=== PATIENT | male | born 1955 | race Caucasian/White ===

== ENCOUNTER 2020-12-27 14:59 | Outpatient (CLI) | payer MEDICARE, MEDICAID, SELFPAY ==
--- NOTE | 2020-12-27 11:01 | ECG_ITS ---
Measurements Intervals [place] Rate: 56 P: 24 ME: 186 QRS: 5 QRSD: 94 T: 20 QT: 380 QTc: 369 Interpretive Statements SINUS BRADYCARDIA INCOMPLETE RIGHT BUNDLE BRANCH BLOCK PEAKED T WAVES- CONSIDER HYPERKALEMIA OR ISCHEMIA BASELINE ARTIFACT- I, II, III, AVR, AVL, AVF ABNORMAL ECG Electronically Signed On 12-27-2020 11:24:21 CDT by Daniel Mayer D.O.
[2020-12-27 11:26] LABS: Basophils Absolute Auto 0.1 K/mm3 (0.0-0.1); Basophils Percent Auto 1.2 % (0.2-1.2); Eosinophils Absolute Auto 0.1 K/mm3 (0-0.3); Eosinophils Percent Auto 1.4 % (0-4.4); Hematocrit 45.4 % (42.0-52.0); Hemoglobin 14.7 g/dL (14.0-18.0); Immature Granulocyte Absolute 0.01 K/mm3 (0.00-0.031); Immature Granulocyte Percent A 0.2 % (0-0.5); Lymphocytes Absolute Auto 1.36 K/mm3 (0.9-3.2); Mean Corpuscular HGB Conc 32.4 g/dl (32-36); Mean Corpuscular Volume 95.8 fl (80-100); Monocytes Absolute Auto 0.5 K/mm3 (0.1-0.6); Monocytes Percent Auto 8.8 % (2.6-8.5); Neutrophils Absolute Auto 3.9 K/mm3 (1.3-6.7); Neutrophils Percent Auto 65.4 % (45.5-73.1); Platelet Count Result 243 k/mm3 (150-375); Red Blood Count 4.74 M/mm3 (4.6-6.20); Red Cell Distribution Width 12.6 % (11.5-14.5); White Blood Count 5.9 K/mm3 (4.5-10.0)
[2020-12-27 11:29] LABS: INR 0.9
[2020-12-27 11:32] LABS: Partial Thromboplastin Time 26.3 SECONDS (22.3-36.8)
[2020-12-27 11:36] LABS: Alanine Aminotransferase 31 U/L (4-50); Albumin Level 4.5 g/dL (3.5-5.1); Alkaline Phosphatase 62 U/L (38-126); Anion Gap 6 mmol/L (8-16); Aspartate Amino Transferase 32 U/L (17-59); Bilirubin,Total 0.9 mg/dL (0.2-1.3); Blood Urea Nitrogen 13 mg/dL (9-20); Calcium 9.2 mg/dL (8.4-10.2); Carbon Dioxide 30 mmol/L (22-30); Chloride 102 mmol/L (98-107); Estimated Glomerular Filt Rate > 60; Glucose 96 mg/dL (75-110); Potassium 4.9 mmol/L (3.4-5.0); Sodium 138 mmol/L (137-145)
== END 2020-12-27 15:00 | disposition home or self-care (01) ==
LOC: ANHSURGERY 01-16 15:01
PROVIDERS: Visit Provider Urology
DX: Z01.818 Encounter for other preprocedural examination (principal); C61 Malignant neoplasm of prostate; E78.00 Pure hypercholesterolemia, unspecified
CPT/HCPCS: 36415; 80053; 85025; 85610; 85730; 86850; 86900; 86901; 87086; 93005

== ENCOUNTER 2021-01-03 01:13 | Day surgery (SDC) | payer MEDICARE, MEDICAID, SELFPAY ==
[2020-12-27 10:18] VITALS: BP 142/92; PULSE 61; RESP 18; TEMP 37.4; O2SAT 100; BMI 24.0
--- NOTE | 2021-01-02 09:22 | WPDANESEPPF ---
Anes - Initial Pre Proc Eval Procedure: Operation Date: 01/03/21 07:30 Proposed Procedures p Robotic Assisted Nerve Sparing Prostatectomy, with Possible Bilateral Pelvic Lymph Nodes Dissection - Wil Nicolas MD Date/Time: 01/02/21 09:22 Surgeon: Wil Nicolas MD Pre Op Diagnosis: Prostate cancer Patient Data Age: 65 Gender: M Height: 1.8 m Weight: 78.3 kg Last Vital Signs Temp 37.4 C 12/27/20 10:18 Pulse 61 12/27/20 10:18 Resp 18 12/27/20 10:18 BP 142/92 H 12/27/20 10:18 Pulse Ox 100 12/27/20 10:18 Allergies Allergy/AdvReac Type Severity Reaction Status Date / Time No Known Allergies Allergy Verified 01/03/21 06:54 Home Medications Medication Instructions Recorded Confirmed Type fluticasone propionate 1 spray INTRANASAL DAILY PRN 12/27/20 12/27/20 History loratadine [Claritin] 10 mg PO DAILY PRN 12/27/20 12/27/20 History simvastatin 10 mg PO HS 12/27/20 12/27/20 History vitamin B complex [B 1 tablet PO DAILY 12/27/20 12/27/20 History Complex-Vitamin B12] Patient hx anesthesia problems: none Family hx anesthesia problems: none [facility] Past Medical History Medical History (Updated 01/02/21 @ 09:22 by Herson Ayala DO) History of basal cell cancer Prostate cancer Surgical History Surgical History (Updated 01/02/21 @ 09:22 by Herson Ayala DO) History of tonsillectomy Social History Social History Smoking status: Never smoker Tobacco type: cigarettes Alcohol intake: never Substance use type: marijuana Living arrangements: with family Additional living arrangements comments: [facility] Spiritual care concerns: No Anes - Eval Final PreProcedure Day of Procedure 01/02/21 09:22 Patient weight: normal Heart: regular rate and rhythm Lungs: clear to auscultation and normal air movement Airway: Mallampati scale class III Neurological: alert and oriented Last oral intake: >/= 8 hours ASA classification: III Emergent: no Anesthetic plan: proceed Anesthesia type and monitoring: general ETT and standard monitoring Informed Consent: The patient's anesthetic plan and its attendant risks and benefits were discussed with the patient/family/POA. Questions were solicited and answers provided to the satisfaction of the patient/family/POA.
[2021-01-03] VITALS (20 sets, daily range): BP systolic 102–154; BP diastolic 68–89; PULSE 58–96; RESP 12–20; TEMP 36.2–37.5; O2SAT 97–100
[2021-01-03] MEDS: LACTATED RINGERS 1,000 ML 30 ML IV CONT ×2 (06:39→11:35)
--- NOTE | 2021-01-03 07:14 | WPDHPUPDATE1 ---
History and Physical Update Update Date/Time: 01/03/21 07:14 History and Physical has been reviewed, including an updated exam of the patient. There are NO changes in the patient's condition. Risks, benefits, and alternatives have been discussed and questions answered. Patient agrees to proceed with procedure.
[2021-01-03] MEDS: ceFAZolin 2 GM/D5W 50 ML 2 GM/50 ML BAG IVPB (07:22)
--- NOTE | 2021-01-03 11:05 | P.OP_ITS ---
Procedure Note - Detailed Date of Procedure 01/03/21 Pre-op Diagnosis Prostate cancer Post-op Diagnosis same Procedure Performed Robotic assisted nerve-sparing prostatectomy with bilateral pelvic lymph node dissection Surgeon Wil Nicolas MD Anesthesia general Description of Procedure patient is taken to the operative suite and correctly identified. Once anesthesia was obtained was placed in low lying dorsal lithotomy position and prepped and draped usual sterile fashion. All pressure points were padded. Eighteen English Garcia was placed with 20 cc in the balloon. Supraumbilical incision was then made and a Veress needle was inserted and insufflated to 15 mmHg pressure. Camera port trocar was then placed under direct vision. Working ports were placed in the appropriate locations. Patient was placed in steep Trendelenburg position and the robot was docked. We then did a posterior ap proach. Seminal vesicles were dissected out in their entirety. Vas were transected. Plane between the prostate and rectum were developed. Bladder was taken down standard fashion. Space of Retzius was developed. Puboprostatics were transected. Dorsal venous complex was then ligated using an 0 Vicryl in secured to the pubic bone. Bladder neck was then incised. Bladder neck sparing procedure was performed. Posterior plane was then developed and the prior dissected seminal vesicles were visualized. Pedicles were clipped. Bilateral nerve sparing was then performed. Dorsal venous complex was transected. The urethra was also transected. Specimen was placed in Endo-Catch bag. Bilateral pelvic lymph node dissections were then performed with the boundaries being the external iliac vein, obturator nerve, Gage's ligament, and bifurcation of the vessels. Proximal and distal ends were clipped. Surgicel was placed in the obturator fossa as as well as overlying the nerve bundles. A Chauncey stitch was then placed using 0 Vicryl. Bladder neck was anastomosed to the urethra stent with good mucosa to mucosa approximation. V lock suture was used. Eighteen English Garcia was placed with 10 cc in the balloon. The bladder was filled with 200 cc of normal saline. It irrigated well. There was no evidence of extravasation at this time. The robot was undocked and a ANA M drain was then placed through the 3rd port site. This was secured. Midline incision was closed using 0 Vicryl in a running fashion. Subcuticular stitches were then placed. Incisions were anesthetized using 1% lidocaine. Patient tolerated procedure well without any complications and was taken recovery room stable condition. All lap count needle count sponge counts were correct at this point. Blood loss was approximately 100 cc Estimated Blood Loss 100 Drains Yes Packing No Pathology yes Complications No immediate complications Condition stable Disposition PACU
--- NOTE | 2021-01-03 15:03 | ADMGEN ---
This patient, Herson Andino, was admitted to 2 Medical Room 253-01. Patient/family oriented to hospital policies and general routines including ID bracelet, bed and alarms, visiting hours, pain management, procedures, bathroom and other care routines, personal items, smoking policy, room service/diet, and visiting hours. Information on how to activate the Rapid Response Team has been discussed. Patient/Family are encouraged to report perceived risks to care and to ask questions if they do not understand what they are told or what they should do. Report received from OLU Rodas
[2021-01-03] MEDS: LACTATED RINGERS 1,000 ML 125 ML IV CONT ×2 (15:33→23:34)
[2021-01-03] MEDS: HYDROcodone/acetaminophen (*CRX) 5-325 MG TABLET 1 TAB PO (16:03)
[2021-01-03] MEDS: HYDROcodone/acetaminophen (*CRX) 5-325 MG TABLET 2 TAB PO (20:46)
[2021-01-03] MEDS: SIMVASTATIN 10 MG TABLET PO (20:47)
[2021-01-04 00:33] VITALS: BP 121/70; PULSE 83; RESP 16; TEMP 36.7; O2SAT 98
[2021-01-04 04:33] VITALS: BP 112/71; PULSE 70; RESP 16; TEMP 36.5; O2SAT 97
[2021-01-04] MEDS: HYDROcodone/acetaminophen (*CRX) 5-325 MG TABLET 1 TAB PO (04:53)
[2021-01-04 05:46] LABS: Hematocrit 36.7 % (42.0-52.0); Hemoglobin 12.2 g/dL (14.0-18.0)
[2021-01-04 05:56] LABS: Anion Gap 3 mmol/L (8-16); Blood Urea Nitrogen 12 mg/dL (9-20); Calcium 8.3 mg/dL (8.4-10.2); Carbon Dioxide 29 mmol/L (22-30); Chloride 103 mmol/L (98-107); Estimated CRCL calculation 57 ml/min; Estimated Glomerular Filt Rate 60; Glucose 113 mg/dL (65-110); Potassium 4.2 mmol/L (3.4-5.0); Sodium 135 mmol/L (137-145)
[2021-01-04] MEDS: LACTATED RINGERS 1,000 ML 125 ML IV CONT (08:20)
[2021-01-04] MEDS: levoFLOXacin 500 MG TABLET PO (08:21)
--- NOTE | 2021-01-04 09:42 | WPDUROPN2 ---
Progress Note: A&P Assessment and Plan (1) Prostate cancer: Code(s): C61 - Malignant neoplasm of prostate Status: Inactive Assessment and Plan: Will plan to discharge this afternoon if the patient tolerates activity. If the ANA M drain output decreases will plan to remove the drain, otherwise it will stay in until Saturday. Garcia catheter will remain in until next week after cystogram. Will check on patient around noon, then decide on discharge. Subjective Subjective Date/Time Seen: 01/04/21 09:42 POD #1 Robotic Assisted Nerve Sparing Prostatectomy with bilateral pelvic lymph node dissection. Patient is doing well this morning, he notes improvement of his pain, he is tolerating his diet, but has not been up to the chair or ambulating just yet. His ANA M drain has had a moderate amount of bloody drainage. Urine is clear and draining to gravity. Review of Systems Cardiovascular: Cardiovascular: Denies chest pain Respiratory: Respiratory: Reports no additional respiratory complaints Gastrointestinal: Gastrointestinal: Reports abdominal pain, Denies nausea and Denies vomiting Genitourinary: Genitourinary: Denies hematuria, Denies dysuria, Denies flank pain, Denies urinary frequency, Denies urinary hesitancy and Denies urinary urgency Exam Resp: Effort & Inspection: normal respiratory effort Cardio: Rate: regular rate GI: Inspection: incision (all are well approximated, no drainage or edema) GI Palp: Yes Soft to palpation and Yes Tenderness to palpation present (GI) (at inscions sites only) Rectal Exam: other (ANA M drain draining to gravity, bloody drainage noted in the bulb) Urinary Catheter: Urinary Catheter: patent and draining and urine clear Extrem: General: no edema Objective Data Vital Signs Vital Signs: Vital Signs - 24 hr 01/03/21 11:26 01/03/21 11:30 01/03/21 11:45 Temperature 97.1 F L Pulse Rate 82 67 61 Respiratory Rate 18 12 17 Blood Pressure 141/87 H 144/83 H 102/89 Pulse Oximetry 100 100 100 01/03/21 12:00 01/03/21 12:15 01/03/21 12:30 Temperature Pulse Rate 58 L 60 64 Respiratory Rate 16 13 18 Blood Pressure 144/78 H 126/76 143/85 H Pulse Oximetry 100 100 99 01/03/21 12:45 01/03/21 13:00 01/03/21 13:15 Temperature Pulse Rate 68 69 68 Respiratory Rate 12 14 15 Blood Pressure 144/85 H 140/82 131/85 Pulse Oximetry 99 100 98 01/03/21 13:30 01/03/21 14:00 01/03/21 14:30 Temperature 98.2 F Pulse Rate 69 71 77 Respiratory Rate 16 16 19 Blood Pressure 131/87 125/84 130/83 Pulse Oximetry 97 98 98 01/03/21 14:45 01/03/21 15:00 01/03/21 15:15 Temperature 98.1 F 98.3 F Pulse Rate 83 84 83 Respiratory Rate 20 18 18 Blood Pressure 123/82 128/78 130/86 Pulse Oximetry 99 98 98 01/03/21 15:45 01/03/21 16:45 01/03/21 20:00 Temperature 98.2 F 99.5 F Pulse Rate 73 96 88 Respiratory Rate 18 18 18 Blood Pressure 138/81 112/68 Pulse Oximetry 97 100 98 01/03/21 20:33 01/04/21 00:33 01/04/21 04:33 Temperature 99.1 F 98.1 F 97.7 F Pulse Rate 88 83 70 Respiratory Rate 18 16 16 Blood Pressure 120/74 121/70 112/71 Pulse Oximetry 98 98 97 Intake/Output Intake/Output: Intake & Output 01/01/21 01/02/21 01/03/21 01/04/21 23:59 23:59 23:59 23:59 Intake Total 2410 1200 Output Total 820 2460 Balance 1590 -1260 Meds/Results Medications: Active Medications Generic Name Dose Route Start Last Admin Trade Name Freq PRN Reason Stop Dose Admin Hydrocodone Bitart/Acetaminophen 1 tab 01/03/21 14:48 01/04/21 04:53 Hydrocodone/Acetaminophen (*Crx) 5-325 Mg Tablet PO 1 tab Q6H PRN Administration Pain Rated 1-3 Hydrocodone Bitart/Acetaminophen 2 tab 01/03/21 14:48 01/03/21 20:46 Hydrocodone/Acetaminophen (*Crx) 5-325 Mg Tablet PO 2 tab Q6H PRN Administration Pain Rated 4-6 Hyoscyamine 0.125 mg 01/03/21 14:48 Hyoscyamine Sulfate 0.125 Mg Tablet SUBLINGUAL Q4H PRN Bladder Spasm Lactated Ringer's 1,0
== END 2021-01-04 14:26 | disposition home or self-care (01) ==
LOC: ANHSURGERY 06:09 → ANH2MED 14:51
PROVIDERS: Visit Provider Urology
PROC: 0VT04ZZ Resection of Prostate, Percutaneous Endoscopic Approach (ICD-10-PCS; CPT 55867; principal; 2021-01-03 07:30)
DX: C61 Malignant neoplasm of prostate (principal)
CPT/HCPCS: 55866; 38571; S2900; 36415; 80048; 80053; 85014; 85018; 85025; 85610; 85730; 86850; 86900; 86901; 87086; 88307; 88342; 93005; A9270; J0690; J1100; J2405; J2704; J2710; J3010; J7030; J7120

== ENCOUNTER 2021-01-11 09:34 | Outpatient (CLI) | payer MEDICARE, MEDICAID, SELFPAY ==
--- NOTE | ~2021-01-11 | XR_ITS ---
EXAMINATION: CYSTOGRAM DATE: 01/11/2021 10:05 INDICATION: Prostate cancer follow-up TECHNIQUE: Initial project management radiograph of the pelvis was performed. There was retrograde administration of Omnipaque 350 mixed with saline contrast into patient's existing aguirre catheter. Fluoroscopic vicki ges of the pelvis were obtained. A post-void image was also performed. 10 fluoroscopic images. 0.8 mi nutes of fluoroscopy. FINDINGS: There is extravasation of contrast, consistent with leak originating at the bladder neck on the right. There is mild trabeculation of the bladder wall. No intraluminal filling defects identifi ed, although examination limited. IMPRESSION: 1. Bladder leak with extravasation of contrast at the bladder neck on the right. Reviewed, dictated and finalized at location A. IMPRESSION: 1. Bladder leak with extravasation of contrast at the bladder neck on the rig t.
== END 2021-01-11 09:35 | disposition home or self-care (01) ==
LOC: ANHIMG 09:38
PROVIDERS: Visit Provider Urology
DX: C61 Malignant neoplasm of prostate (principal); R32 Unspecified urinary incontinence
CPT/HCPCS: 51600; 74430; Q9967

== ENCOUNTER 2021-01-18 08:52 | Outpatient (CLI) | payer MEDICARE, MEDICAID, SELFPAY ==
--- NOTE | ~2021-01-18 | XR_ITS ---
EXAMINATION: XR cystogram DATE: 01/18/2021 09:47 INDICATION: Malignant neoplasm of the prostate status post prostatectomy TECHNIQUE: Water-soluble contrast was gravity-infused through the patient's Garcia catheter. Multiple fluoroscopic images were obtained. Fluoroscopy exposure time was 0.9 minutes. The DAP for this proced ure was 20.77 Gycm2. COMPARISON: 01/11/2021 FINDINGS: There is a persistent but improved leak near the right neck of the bladder. The bladder con tour is normal. Phleboliths of the pelvis are noted. There is mild osteoarthritis of the hips. IMPRESSION: 1. Persistent but improved leak near the right neck of the bladder. Reviewed, dictated and finalized at location A.
== END 2021-01-18 08:53 | disposition home or self-care (01) ==
LOC: ANHIMG 08:56
PROVIDERS: Visit Provider Urology
DX: C61 Malignant neoplasm of prostate (principal); N32.89 Other specified disorders of bladder
CPT/HCPCS: 51600; 74430; Q9967